=== PATIENT | male | born 1950 | race Caucasian/White ===

== ENCOUNTER 2016-03-19 04:41 | Emergency (ER) | payer MEDICARE, MEDICAID ==
[2016-03-19 05:28] LABS: ABSOLUTE EOSINOPHILS # (AUTO) 0.1 10^3/uL (0.0-0.6); ABSOLUTE LYMPHOCYTES (AUTO) 1.8 10^3/uL (0.5-4.7); ABSOLUTE MONOCYTES (AUTO) 0.7 10^3/uL (0.1-1.4); ABSOLUTE NEUT (AUTO) 3.4 10^3/uL (1.7-8.2); BASOPHILS % (AUTO) 0.3 % (0-2); EOSINOPHILS % (AUTO) 1.6 % (0-6); HEMATOCRIT 42.6 % (37.9-51.0); HEMOGLOBIN 13.9 g/dL (13.5-17.0); HGB HCT DIFFERENCE -0.9; LYMPHOCYTES % (AUTO) 30.2 % (13-45); MEAN CORPUSCULAR HEMOGLOBIN 27.8 pg (27.0-33.4); MEAN CORPUSCULAR HGB CONC 32.5 g/dL (32.0-36.0); MEAN CORPUSCULAR VOLUME 85 fl (80-97); MONOCYTES % (AUTO) 11.9 % (3-13); RED BLOOD COUNT 4.99 10^6/uL (4.35-5.55); RED CELL DISTRIBUTION WIDTH 16.7 % (11.5-14.0)
[2016-03-19 06:23] LABS: ANION GAP 13 (5-19); BLOOD UREA NITROGEN 12 mg/dL (7-20); CALCIUM 9.3 mg/dL (8.4-10.2); CARBON DIOXIDE 30 mmol/L (22-30); CHLORIDE 99 mmol/L (98-107); CREATININE RESULT 0.88 mg/dL (0.52-1.25); GLUCOSE 94 mg/dL (75-110); MAGNESIUM 1.9 mg/dL (1.6-2.3); POTASSIUM 4.5 mmol/L (3.6-5.0); SODIUM 141.8 mmol/L (137-145)
--- NOTE | 2016-03-19 06:34 | ER Document Report ---
ED General - General Chief Complaint: Seizure Stated Complaint: POSSIBLE SEIZURE Time seen by provider: 06:30 Mode of Arrival: Medic Information source: Patient Notes: 65-year-old male presents via EMS with report of possible seizure. Patient reports his seizure episodes or staring spells and he thinks he had one of those at some point during the night tonight. He is not sure exactly when. He reports he has been taking his valproic acid as usual is a correction is providing that to them. He has no complaints now. Physical Exam: General: Alert, appears well. HEENT: Normocephalic. Atraumatic. PERRLA. Extraocular movements intact. Oropharynx clear. Tympanic membranes are canals clear Neck: Supple. Non-tender. Respiratory: No respiratory distress. Clear and equal breath sounds bilaterally. Cardiovascular: Regular rate and rhythm. Abdominal: Normal Inspection. Soft, non-tender. No distension. Normal Bowel Sounds. Back: Non-tender. No deformity or step off. Minimal erythema in the sacral region but no areas of skin breakdown normal male testes ongoing no lesions Extremities: Moves all four extremities. No gross deformities no lesions noted no pain in extremity with passive range of motion Neurological: Cranial nerves III-XII grossly intact bilaterally. Supervisor [place]ble strength 4-5 to left upper extremity. 5 out of 5 on the right. Motor function is 3 out of 5 to left lower extremity compared to 4 out of 5 on the right Psychological: Normal affect. Normal Mood. Skin: Warm. Dry. Normal color. TRAVEL OUTSIDE OF THE [place] IN LAST 30 DAYS: No - Related Data Allergies/Adverse Reactions: NUTS Allergy (Mild, Uncoded 03/14/15 15:48) Past Medical History - Social History Smoking Status: Former Smoker Family History: CVA - Past Medical History Cardiac Medical History: Reports: Hx Hypercholesterolemia, Hx Hypertension Denies: Hx Coronary Artery Disease, Hx Heart Attack Pulmonary Medical History: Reports: Hx COPD Denies: Hx Asthma, Hx Bronchitis, Hx Pneumonia Neurological Medical History: Reports: Hx Cerebrovascular Accident, Hx Seizures Musculoskeltal Medical History: Reports Hx Arthritis Psychiatric Medical History: Reports: Hx Depression Traumatic Medical History: Reports: Hx Spine Fracture Past Surgical History: Reports: Hx Orthopedic Surgery - Right knee cap - Immunizations Hx Diphtheria, Pertussis, Tetanus Vaccination: Yes Review of Systems - Review of Systems Constitutional: denies: Chills, Fever EENT: denies: Ear pain, Throat pain Cardiovascular: denies: Chest pain, Palpitations Respiratory: denies: Cough, Short of breath Gastrointestinal: denies: Abdominal pain, Nausea, Vomiting Genitourinary: denies: Burning, Dysuria Musculoskeletal: denies: Back pain Hematologic/Lymphatic: denies: Swollen glands Neurological/Psychological: Weakness - Patient reports left upper and lower extremity weakness at his baseline. denies: Numbness Course - Re-evaluation Re-evalutation: 03/19/16 07:10 Patient remains asymptomatic during his stay in the emergency department. He is mentating clearly and reports he is at his baseline. Patient is safe for discharge and requires no further workup - Laboratory Result Diagrams: 03/19/16 05:00 03/19/16 05:00 Laboratory results interpreted by me: 03/19/16 05:00 RDW 16.7 H 03/19/16 07:10 Valproic acid level 105.7 Discharge - Discharge Clinical Impression: Seizure Condition: Stable Disposition: HOME-SNF (ED ONLY) Additional Instructions: Seizure You have had a seizure. Seizure disorders (epilepsy) of one sort or another affect about one out of 50 people. The seizure occurs because of abnormal electrical activity in the brain. Seizures may be due to drugs and alcohol, strokes, brain injury, or infection. In the most common form of epilepsy, no cause can be found. You will require further evaluation to determine the cause of your seizure, and to determine whether anti-seizure medication is required. This follow-up testing is important, so please call us if you encounter problems with scheduling of tests or appointments. YOU SHOULD NOT DRIVE until released to do so by your physician. The law requires that seizures be reported to the driver manager's license bureau--a seizure while driving could be catastrophic. Call the doctor if seizures recur, or if you develop new symptoms such as fever, severe headache, stiff neck, confusion or increasing sleepiness, weakness or numbness, or visual problems. Referrals: TIFFANY THOMAS MD [COMMUNITY BASED STAFF] - Follow up as needed
[2016-03-19 08:15] VITALS: BP 141/90
== END 2016-03-19 08:20 ==
LOC: ER 04:41
DX: R56.9 Unspecified convulsions (principal); R53.1 Weakness; E78.00 Pure hypercholesterolemia, unspecified; I10 Essential (primary) hypertension; J44.9 Chronic obstructive pulmonary disease, unspecified; Z91.018 Allergy to other foods; Z86.73 Personal history of transient ischemic attack (TIA), and cerebral infarction without residual deficits
CPT/HCPCS: 36415; 80048; 80164; 83735; 85025; 99284

== ENCOUNTER 2016-03-26 06:27 | Inpatient (IN) | payer MEDICARE, MEDICAID ==
[2016-03-26] MEDS ORDERED: NORMAL SALINE 1000 ML 1,000 ML IV PRN (06:43)
--- NOTE | 2016-03-26 06:43 | ER Document Report ---
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 Pt placed on nonrebreather sating 87%. pt is confused TRAVEL OUTSIDE OF THE [place] IN LAST 30 DAYS: No - HPI Onset: Yesterday Onset/Duration: Persistent Quality of pain: No pain Severity: Severe Pain Level: Denies Associated symptoms: Productive cough, Fever, Shortness of breath Exacerbated by: Denies Relieved by: Denies Similar symptoms previously: No Recently seen / treated by doctor: No - Related Data Allergies/Adverse Reactions: NUTS Allergy (Mild, Uncoded 03/14/15 15:48) Past Medical History - General Information source: Emergency Med Personnel Cannot obtain history due to: Altered mental status - Social History Smoking Status: Never Smoker Cigarette use (# per day): No Chew tobacco use (# tins/day): No Smoking Education Provided: No Family History: CVA - Past Medical History Cardiac Medical History: Reports: Hx Hypercholesterolemia, Hx Hypertension Denies: Hx Coronary Artery Disease, Hx Heart Attack Pulmonary Medical History: Reports: Hx COPD Denies: Hx Asthma, Hx Bronchitis, Hx Pneumonia Neurological Medical History: Reports: Hx Cerebrovascular Accident, Hx Seizures Musculoskeltal Medical History: Reports Hx Arthritis Psychiatric Medical History: Reports: Hx Depression Traumatic Medical History: Reports: Hx Spine Fracture Past Surgical History: Reports: Hx Orthopedic Surgery - Right knee cap - Immunizations Hx Diphtheria, Pertussis, Tetanus Vaccination: Yes Review of Systems - Review of Systems Notes: REVIEW OF SYSTEMS: Per care facility CONSTITUTIONAL : Fevers recent illness EENT: Denies eye, ear, throat, or mouth pain or symptoms. Denies nasal or sinus congestion or discharge. Denies throat, tongue, or mouth swelling or difficulty swallowing. CARDIOVASCULAR: Denies chest pain. Denies palpitations or racing or irregular heart beat. Denies ankle edema. RESPIRATORY: Duct of cough shortness of breath GASTROINTESTINAL: Denies abdominal pain or distention. Denies nausea, vomiting , or diarrhea. Denies blood in vomitus, stools, or per rectum. Denies black, tarry stools. Denies constipation. GENITOURINARY: Denies difficulty urinating, painful urination, burning, frequency, blood in urine, or discharge. MUSCULOSKELETAL: Denies back or neck pain or stiffness. Denies joint pain or swelling. SKIN: Denies rash, lesions or sores. HEMATOLOGIC : Denies easy bruising or bleeding. LYMPHATIC: Denies swollen, enlarged glands. NEUROLOGICAL: Denies confusion or altered mental status. Denies passing out or loss of consciousness. Denies dizziness or lightheadedness. Denies headache. Denies weakness or paralysis or loss of use of either side. Denies problems with gait or speech. Denies sensory loss, numbness, or tingling. Denies seizures. PSYCHIATRIC: Denies anxiety or stress. Denies depression, suicidal ideation, or homicidal ideation. ALL OTHER SYSTEMS REVIEWED AND NEGATIVE. Dictation was performed using [employer] voice recognition software PHYSICAL EXAMINATION: GENERAL: Ill-appearing male febrile HEAD: Atraumatic, normocephalic. EYES: Pupils equal round and reactive to light, extraocular movements intact, sclera anicteric, conjunctiva are normal. ENT: Nares patent, oropharynx clear without exudates. Moist mucous membranes. NECK: Normal range of motion, supple without lymphadenopathy LUNGS: Coarse rhonchi all throughout hypoxic HEART: Tachycardic ABDOMEN: Soft, nontender, nondistended abdomen. No guarding, no rebound. No masses appreciated. Musculoskeletal: Unable to evaluate musculoskeletal NEUROLOGICAL: Patient is confused SKIN: Warm, Dry, normal turgor, no rashes or lesions noted. Physical Exam - Vital signs Vitals: Pulse Ox 87 L 03/26/16 06:31 Course - Re-evaluation Re-evalutation: 03/26/16 06:42 Patient is septic from probable aspiration pneumonia, antibiotics have been ordered as well as fluids. Patient is not satting well on nonrebreather and BiPAP has been ordered. 03/26/16 11:41 Patient admitted to hospital service - Vital Signs Vital signs: Temp Pulse Resp BP Pulse Ox 13 145/81 H 92 03/26/16 07:01 03/26/16 07:01 03/26/16 07:01 - Laboratory Result Diagrams: 03/26/16 06:37 03/26/16 06:37 Laboratory results interpreted by me: 03/26/16 03/26/16 03/26/16 06:37 06:37 07:15 RDW 17.0 H Monocytes % 16.1 H ABG pO2 BUN 21 H Glucose 136 H Creatine Kinase 1068 H Urine Protein 100 H Urine Ketones TRACE H Urine Blood SMALL H Urine Urobilinogen 4.0 H Ur Leukocyte Esterase LARGE H 03/26/16 08:13 RDW Monocytes % ABG pO2 101.9 H BUN Glucose Creatine Kinase Urine Protein Urine Ketones Urine Blood Urine Urobilinogen Ur Leukocyte Esterase - Diagnostic Test Radiology reviewed: Image reviewed, Reports reviewed - EKG Interpretation by Me EKG shows normal: Sinus rhythm, [place], Intervals, QRS Complexes Rate: Tachycardia Critical Care Note - Critical Care Note Total time excluding time spent on procedures (mins): 45 Comments: 45 minutes of critical care time spent in direct contact evaluating and reevaluating the patient, treating symptoms, reviewing labs and studies and speaking with family and consultants excluding any procedures Discharge - Discharge Clinical Impression: Hypoxemia Respiratory failure Qualifiers: Chronicity: acute Respiratory failure complication: hypoxia and hypercapnia Qualified Code(s): J96.01 - Acute respiratory failure with hypoxia Sepsis Qualifiers: Sepsis type: sepsis due to unspecified organism Qualified Code(s): A41.9 - Sepsis, unspecified organism Aspiration pneumonia Qualifiers: Aspiration pneumonia type: due to gastric secretions Laterality: bilateral Lung location: unspecified part of lung Qualified Code(s): J69.0 - Pneumonitis due to inhalation of food and vomit UTI (urinary tract infection) Qualifiers: Urinary tract infection type: acute cystitis Hematuria presence: without hematuria Qualified Code(s): N30.00 - Acute cystitis without hematuria Condition: Serious Disposition: ADMITTED INPATIENT Admitting Provider: Hospitalist Unit Admitted: ICU
[2016-03-26] MEDS ORDERED: LEVOFLOXACIN 750 MG/D5W RTU 150 ML IV ONE (06:44)
[2016-03-26] MEDS ORDERED: VANCOMYCIN HCL INJ 1000 MG VIAL IV ONE (06:44)
[2016-03-26] MEDS ORDERED: AMPICILLIN SOD/SULBACTAM 3 GM VIAL IV ONE (06:44)
[2016-03-26 06:53] LABS: ABSOLUTE LYMPHOCYTES (AUTO) 1.2 10^3/uL (0.5-4.7); BASOPHILS % (AUTO) 0.5 % (0-2); EOSINOPHILS % (AUTO) 0.2 % (0-6); HEMATOCRIT 45.7 % (37.9-51.0); HEMOGLOBIN 14.9 g/dL (13.5-17.0); MEAN CORPUSCULAR HEMOGLOBIN 28.1 pg (27.0-33.4); MEAN CORPUSCULAR HGB CONC 32.6 g/dL (32.0-36.0); MEAN CORPUSCULAR VOLUME 86 fl (80-97); MONOCYTES % (AUTO) 16.1 % (3-13); RED BLOOD COUNT 5.31 10^6/uL (4.35-5.55); SEGMENTED NEUTROPHILS % (AUTO) 64.2 % (42-78); WHITE BLOOD COUNT 6.2 10^3/uL (4.0-10.5)
[2016-03-26] MEDS: NORMAL SALINE 1000 ML 1,000 ML IV PRN ×3 (07:00→18:49)
[2016-03-26 07:04] LABS: ALANINE AMINOTRANSFERASE 24 U/L (21-72); ALBUMIN 4.1 g/dL (3.5-5.0); ALKALINE PHOSPHATASE 81 U/L (38-126); ANION GAP 17 (5-19); ASPARTATE AMINO TRANSFERASE 29 U/L (17-59); BILIRUBIN,TOTAL 1.1 mg/dL (0.2-1.3); BLOOD UREA NITROGEN 21 mg/dL (7-20); CALCIUM 9.5 mg/dL (8.4-10.2); CARBON DIOXIDE 27 mmol/L (22-30); CHLORIDE 100 mmol/L (98-107); CREATINE KINASE 1068 U/L (55-170); CREATININE RESULT 0.99 mg/dL (0.52-1.25); GLUCOSE 136 mg/dL (75-110); POTASSIUM 4.2 mmol/L (3.6-5.0); TOTAL PROTEIN 7.5 g/dL (6.3-8.2)
[2016-03-26 07:16] LABS: CREATINE KINASE MB 1.65 ng/mL (<4.55)
[2016-03-26 07:30] LABS: TROPONIN I < 0.012 ng/mL
[2016-03-26 08:11] LABS: APPEARANCE,URINE CLOUDY; BILIRUBIN,URINE NEGATIVE (NEGATIVE); GLUCOSE, URINE NEGATIVE (NEGATIVE); KETONES,URINE TRACE mg/dL (NEGATIVE); LEUKOCYTE ESTERASE,URINE LARGE (NEGATIVE); NITRITE,URINE NEGATIVE (NEGATIVE); PROTEIN,URINE 100 mg/dL (NEGATIVE); URINE SPECIFIC GRAVITY 1.016
[2016-03-26 08:28] LABS: ARTERIAL BLOOD BASE EXCESS -2.6 mmol/L; ARTERIAL BLOOD O2 SATURATION 97.4 % (94-98)
[2016-03-26 08:44] LABS: VENOUS BLOOD BASE EXCESS -0.7 mmol/L; VENOUS BLOOD HCO3 27.1 mmol/L (20-32); VENOUS BLOOD PH 7.3 (7.30-7.42)
[2016-03-26] MEDS ORDERED: ACETAMINOPHEN 325 MG TABLET PO PRN (09:41)
[2016-03-26] MEDS ORDERED: CEFEPIME 2 GM/D5W RTU 50 ML IV SCH (10:00)
--- NOTE | 2016-03-26 10:12 | PDOC H&P ---
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 The ambulance was called and apparently the patient was hypoxic in the 80s and was placed on nonrebreather mask. Despite being 100% on nonrebreather saturations still in the 80s. No reported seizure episode. History of COPD however. In the emergency room the patient is confused and unable to provide information. There was no recorded temperature spikes. WBC was normal. However chest x-ray revealed infiltrates in the lower dose. Intravenous antibiotic was given. Patient was placed on BiPAP. ABG shows normal pH with improvement in oxygenation. Respiratory distress improved. Patient was then referred for admission. Patient remains confused however. No other information available at this time. Information obtained from the emergency room records and from prior records. Information unobtainable from the patient at this time. , Past Medical History Past Medical History: Medications reconciliation pending verification from the patient's pharmacist Cardiac Medical History: Reports: Hyperlipidema, Hypertension Denies: Coronary Artery Disease, Myocardial Infarction Pulmonary Medical History: Reports: Chronic Obstructive Pulmonary Disease (COPD) Denies: Asthma, Bronchitis, Pneumonia Neurological Medical History: Reports: Seizures Malignancy Medical History: Reports: Skin Cancer Musculoskeltal Medical History: Reports: Arthritis Psychiatric Medical History: Reports: Depression Hematology: Denies: Anemia Past Surgical History Past Surgical History: Reports: Orthopedic Surgery - Right knee cap, Other - Excision of skin cancer, colonoscopy Social History Smoking Status: Former Smoker Frequency of Alcohol Use: None Hx Recreational Drug Use: No Drugs: None Family History Family History: CVA Parental Family History Reviewed: No - unobtainable Children Family History Reviewed: No Sibling(s) Family History Reviewed.: No Medication/Allergy Home Medications: Bupropion HCl [Wellbutrin Xl 150 mg 24hr Tablet] 150 mg PO DAILY 03/26/16 Divalproex Sodium [Depakote] 1,500 mg PO QHS 03/26/16 Duloxetine HCl [Cymbalta 20 mg Capsule.dr] 20 mg PO DAILY 03/26/16 Ezetimibe [Zetia 10 mg Tablet] 10 mg PO HSP PRN 03/26/16 Gabapentin [Neurontin 300 mg Capsule] 900 mg PO Q8 03/26/16 Morphine Sulfate [Morphine Ir 15 mg Tablet] 15 mg PO Q8 03/26/16 Omeprazole 40 mg PO QAM 03/26/16 Pregabalin [Lyrica 25 mg Capsule] 25 mg PO Q12 03/26/16 Rosuvastatin Calcium [Crestor 20 mg Tablet] 40 mg PO DAILY 03/26/16 Tamsulosin HCl [Flomax 0.4 mg Cap.sr] 0.4 mg PO DAILY 03/26/16 Allergies/Adverse Reactions: NUTS Allergy (Mild, Uncoded 03/14/15 15:48) Review of Systems ROS unobtainable: Due to mental status - Staff reports stage II decubitus ulcer on coccyx Physical Exam Vital Signs: Temp Pulse Resp BP Pulse Ox 13 145/81 H 92 03/26/16 07:01 03/26/16 07:01 03/26/16 07:01 General appearance: PRESENT: no acute distress, well-developed, other - On BiPAP Head exam: PRESENT: atraumatic, normocephalic Eye exam: PRESENT: conjunctiva pale, EOMI, PERRLA. ABSENT: scleral icterus Ear exam: PRESENT: normal external ear exam. ABSENT: drainage Mouth exam: PRESENT: dry mucosa, neck supple, tongue midline Neck exam: ABSENT: carotid bruit, JVD, lymphadenopathy, thyromegaly Respiratory exam: PRESENT: decreased breath sounds, rhonchi - Few bilateral. ABSENT: rales, wheezes Cardiovascular exam: PRESENT: RRR, +S1, +S2. ABSENT: diastolic murmur, rubs, systolic murmur Pulses: PRESENT: normal dorsalis pedis pul Vascular exam: PRESENT: normal capillary refill GI/Abdominal exam: PRESENT: normal bowel sounds, soft, other - Slight tympany to percussion. ABSENT: distended, guarding, mass, organolmegaly, rebound, tenderness Rectal exam: PRESENT: deferred Extremities exam: PRESENT: +1 edema. ABSENT: calf tenderness, clubbing Neurological exam: PRESENT: altered, motor sensory deficit, other - moves left upper extremity Psychiatric exam: ABSENT: agitated Focused psych exam: ABSENT: restlessness Skin exam: PRESENT: dry, intact, warm. ABSENT: cyanosis, rash Results Impressions: Chest X-Ray 03/26/16 06:31 IMPRESSION: Bibasilar airspace disease either edema or pneumonia. Findings are accentuated by low lung volumes. Assessment & Plan - Diagnosis (1) Respiratory failure Qualifiers: Chronicity: acute Respiratory failure complication: hypoxia and hypercapnia Qualified Code(s): J96.01 - Acute respiratory failure with hypoxia Is this a current diagnosis for this admission?: Yes (2) Aspiration pneumonia Qualifiers: Aspiration pneumonia type: due to gastric secretions Laterality: bilateral Lung location: unspecified part of lung Qualified Code(s): J69.0 - Pneumonitis due to inhalation of food and vomit Is this a current diagnosis for this admission?: Yes (3) UTI (urinary tract infection) Qualifiers: Urinary tract infection type: acute cystitis Hematuria presence: without hematuria Qualified Code(s): N30.00 - Acute cystitis without hematuria Is this a current diagnosis for this admission?: Yes (4) Seizure Is this a current diagnosis for this admission?: Yes (5) COPD (chronic obstructive pulmonary disease) Qualifiers: COPD type: unspecified COPD Qualified Code(s): J44.9 - Chronic obstructive pulmonary disease, unspecified Is this a current diagnosis for this admission?: Yes (6) Hypertension Qualifiers: Hypertension type: essential hypertension Qualified Code(s): I10 - Essential (primary) hypertension Is this a current diagnosis for this admission?: Yes (7) Hyperlipidemia Qualifiers: Hyperlipidemia type: unspecified Qualified Code(s): E78.5 - Hyperlipidemia, unspecified Is this a current diagnosis for this admission?: Yes (8) Neurogenic bladder Is this a current diagnosis for this admission?: Yes (9) Depression Qualifiers: Depression Type: unspecified Qualified Code(s): F32.9 - Major depressive disorder, single episode, unspecified Is this a current diagnosis for this admission?: Yes (10) History of stroke Is this a current diagnosis for this admission?: Yes (11) Chronic pain Qualifiers: Chronic pain type: chronic pain syndrome Qualified Code(s): G89.4 - Chronic pain syndrome Is this a current diagnosis for this admission?: Yes (12) Decubitus ulcer of coccyx, stage 2 Is this a current diagnosis for this admission?: Yes - Time Time Spent: 50 to 70 Minutes - Inpatient Certification Based on my medical assessment, after consideration of the patient's comorbidities, presenting symptoms, or acuity I expect that the services needed warrant INPATIENT care.: Yes I certify that my determination is in accordance with my understanding of Medicare's requirements for reasonable and necessary INPATIENT services [42 CFR 412.3e].: Yes Medical Necessity: Significant Comorbidiites Make Outpatient Treatment Too Risky , Need Close Monitoring Due to Risk of Patient Decompensation, Need For IV Fluids, Need for IV Antibiotics Post Hospital Care: D/C Desktop Specialist Documentation - Plan Summary Plan Summary: the patient will be admitted, to [facility]. We will culture to blood in the urine. We will culture the sputum as well. We will begin broad-spectrum antibiotic to cover for aspiration and likewise for a complicated urinary tract infection. I will hydrate the patient with normal saline. We will monitor CPK. We will continue ventilatory support and wean as per respiratory protocol. We will give bronchodilators. DVT prophylaxis with Lovenox will be placed. Decubiti care and precautions. Further testing depends on the initial evaluation as outlined above
--- NOTE | 2016-03-26 11:46 | EKG REPORT ---
SEVERITY:- ABNORMAL ECG - SINUS TACHYCARDIA RBBB AND LPFB : Confirmed by: An Enriquez MD 26-Mar-2016 11:45:48
[2016-03-26] MEDS ORDERED: CEFEPIME HCL 2 GM in DEXTROSE 5%-WATER 50 ML IV ONE (12:00)
[2016-03-26] MEDS ORDERED: LEVETIRACETAM INJ/PF 500 MG/5 ML SDV IV SCH (12:30)
[2016-03-26] MEDS: LEVETIRACETAM 500 MG/NACL-ISO 500 MG/100 ML RTUPB IV SCH (13:09)
[2016-03-26] MEDS: IPRATROPIUM/ALBUTEROL 0.5-2.5 MG/3 ML AMPUL NEB SCH ×2 (13:52→20:09)
[2016-03-26] MEDS: CLINDAMYCIN 600 MG/D5W RTU 50 ML IV SCH ×2 (14:36→22:21)
[2016-03-26] MEDS: GABAPENTIN 300 MG CAPSULE PO SCH ×2 (18:50→22:20)
[2016-03-26] MEDS ORDERED: DIVALPROEX SODIUM 1000 MG PO SCH (22:00)
[2016-03-26] MEDS: DIVALPROEX SODIUM 500 MG TAB.SR.24H PO SCH (22:20)
[2016-03-26] MEDS: CEFEPIME HCL 2 GM in DEXTROSE 5%-WATER 50 ML IV SCH (23:20)
[2016-03-27] MEDS ORDERED: CEFEPIME 2 GM/D5W RTU 2 GM/50 ML RTUPB IV ONE (00:44)
[2016-03-27] MEDS: NORMAL SALINE 1000 ML 1,000 ML IV PRN ×2 (01:39→12:38)
[2016-03-27] MEDS ORDERED: LEVETIRACETAM 500 MG/NACL-ISO 500 MG/100 ML RTUPB IV ONE (01:45)
[2016-03-27] MEDS: LEVETIRACETAM 500 MG/NACL-ISO 500 MG/100 ML RTUPB IV SCH ×2 (01:49→12:38)
[2016-03-27] MEDS: IPRATROPIUM/ALBUTEROL 0.5-2.5 MG/3 ML AMPUL NEB SCH ×4 (02:09→20:18)
[2016-03-27] MEDS ORDERED: INFLUENZA ADLT QUAD (36MOS+) 2016-17 VAC 0.5 ML SYR IM PRN (05:23)
[2016-03-27] MEDS: CLINDAMYCIN 600 MG/D5W RTU 50 ML IV SCH ×3 (06:08→23:03)
[2016-03-27] MEDS: LANSOPRAZOLE 30 MG TAB.RAP.DR PO SCH (06:10)
[2016-03-27] MEDS: GABAPENTIN 300 MG CAPSULE PO SCH ×4 (06:10→23:56)
[2016-03-27 07:37] LABS: ANION GAP 14 (5-19); BLOOD UREA NITROGEN 19 mg/dL (7-20); CALCIUM 8.9 mg/dL (8.4-10.2); CARBON DIOXIDE 24 mmol/L (22-30); CHLORIDE 107 mmol/L (98-107); CREATININE RESULT 0.67 mg/dL (0.52-1.25); GLUCOSE 112 mg/dL (75-110); POTASSIUM 3.4 mmol/L (3.6-5.0); SODIUM 144.5 mmol/L (137-145)
[2016-03-27] MEDS: ENOXAPARIN SODIUM INJ 40 MG/0.4 ML DISP.SYRIN SUBCUT SCH (07:53)
[2016-03-27] MEDS: CEFEPIME HCL 2 GM in DEXTROSE 5%-WATER 50 ML IV SCH ×2 (09:55→23:03)
[2016-03-27] MEDS ORDERED: MORPHINE SULFATE 10 MG/ML INJ IV PRN ×2 (11:45→12:41)
[2016-03-27] MEDS ORDERED: BISACODYL 10 MG SUPP.RECT PR ONE (12:24)
--- NOTE | 2016-03-27 12:43 | PDOC PROGRESS REPORT ---
Subjective Progress Note for:: 03/27/16 Subjective:: More awake and alert. Responds to questions appropriately. No fever, N/V/ diarrhea. (+) flattus. Has chronic LE pain. No abdominal pain. Remained on BIPAP Physical Exam Vital Signs: Temp Pulse Resp BP Pulse Ox 98.5 F 89 19 138/62 H 96 03/27/16 11:36 03/27/16 11:36 03/27/16 11:36 03/27/16 11:36 03/27/16 11:36 Pulse Oximeter Continuous Start: 03/26/16 09: 41 Freq: RTQ4 Status: Active Document 03/27/16 07:51 HCR (Rec: 03/27/16 09:50 HCR [id number]) Pulse Oximetry Assessment Oxygen Saturation (92-100) 95 Oxygen Delivery Method Bi-pap Fraction of Inspired Oxygen (FIO2) 40 Equipment Usage Equipment in Use Continuous SpO2 Machine # 2 Intake & Output 03/26/16 03/27/16 03/28/16 06:59 06:59 06:59 Intake Total 1650 Output Total 1450 300 Balance 200 -300 Weight 129.8 kg General appearance: PRESENT: no acute distress, morbidly obese Head exam: PRESENT: normocephalic Eye exam: PRESENT: EOMI Mouth exam: PRESENT: moist, neck supple Neck exam: ABSENT: JVD Respiratory exam: PRESENT: clear to auscultation aleisha. ABSENT: rhonchi, wheezes Cardiovascular exam: PRESENT: RRR. ABSENT: gallop GI/Abdominal exam: PRESENT: distended, hypoactive bowel sounds, soft. ABSENT: guarding, tenderness Extremities exam: PRESENT: other - Trace lower extremity edema Neurological exam: PRESENT: alert, awake Skin exam: PRESENT: dry, warm. ABSENT: cyanosis Results Laboratory Results: 03/27/16 06:53 03/27/16 06:53 Sodium 144.5 Potassium 3.4 L Chloride 107 Carbon Dioxide 24 Anion Gap 14 BUN 19 Creatinine 0.67 Est GFR ( Amer) > 60 Est GFR (Non-Af Amer) > 60 Glucose 112 H Calcium 8.9 03/27/16 06:53 CK-MB (CK-2) 2.10 Impressions: KUB X-Ray 03/26/16 00:00 IMPRESSION: NONOBSTRUCTED PATTERN WITH GAS DISTENDED LOOPS OF SMALL AND LARGE BOWEL SUGGESTIVE OF ILEUS. Chest X-Ray 03/26/16 06:31 IMPRESSION: Bibasilar airspace disease either edema or pneumonia. Findings are accentuated by low lung volumes. Assessment & Plan - Diagnosis (1) Respiratory failure Qualifiers: Chronicity: acute Respiratory failure complication: hypoxia and hypercapnia Qualified Code(s): J96.01 - Acute respiratory failure with hypoxia Is this a current diagnosis for this admission?: Yes (2) Aspiration pneumonia Qualifiers: Aspiration pneumonia type: due to gastric secretions Laterality: bilateral Lung location: unspecified part of lung Qualified Code(s): J69.0 - Pneumonitis due to inhalation of food and vomit Is this a current diagnosis for this admission?: Yes (3) UTI (urinary tract infection) Qualifiers: Urinary tract infection type: acute cystitis Hematuria presence: without hematuria Qualified Code(s): N30.00 - Acute cystitis without hematuria Is this a current diagnosis for this admission?: Yes (4) Seizure Is this a current diagnosis for this admission?: Yes (5) COPD (chronic obstructive pulmonary disease) Qualifiers: COPD type: unspecified COPD Qualified Code(s): J44.9 - Chronic obstructive pulmonary disease, unspecified Is this a current diagnosis for this admission?: Yes (6) Hypertension Qualifiers: Hypertension type: essential hypertension Qualified Code(s): I10 - Essential (primary) hypertension Is this a current diagnosis for this admission?: Yes (7) Hyperlipidemia Qualifiers: Hyperlipidemia type: unspecified Qualified Code(s): E78.5 - Hyperlipidemia, unspecified Is this a current diagnosis for this admission?: Yes (8) Neurogenic bladder Is this a current diagnosis for this admission?: Yes (9) Depression Qualifiers: Depression Type: unspecified Qualified Code(s): F32.9 - Major depressive disorder, single episode, unspecified Is this a current diagnosis for this admission?: Yes (10) History of stroke Is this a current diagnosis for this admission?: Yes (11) Chronic pain Qualifiers: Chronic pain type: chronic pain syndrome Qualified Code(s): G89.4 - Chronic pain syndrome Is this a current diagnosis for this admission?: Yes (12) Decubitus ulcer of coccyx, stage 2 Is this a current diagnosis for this admission?: Yes - Time Time Spent with patient: 25-34 minutes - Plan Summary Plan Summary: Continue intravenous antibiotics. Wean BiPAP. Begin diet. We will give Dulcolax suppository. We will replace electrolytes. Reportedly had a seizure episode yesterday. IV Keppra was started. We will resume his Depakote as well as Neurontin. Continue supportive care.
[2016-03-27] MEDS: POTASSI CL 20 MEQ/50 ML RIDER 20 MEQ/50 ML RTUPB IV SCH ×2 (13:36→15:57)
[2016-03-27] MEDS: MORPHINE SULFATE IR 15 MG TABLET PO SCH (13:38)
--- NOTE | 2016-03-27 15:52 | Physician Advisory Note ---
Physician Advisor ProgressNote .: Pursuant to the plan for [facility], I have reviewed the medical record for this patient. Physician Advisor Statement: Excellent documentation of Ac Hypoxemic/Hypercarbic Resp Failure w/initial hypoxemia in 80s with "resp distress improved" after Bipap, which indicates pt did have resp distress with the hypoxemia, & Aspiration PNA, decub w/location & stage. CK
[2016-03-27] MEDS ORDERED: (PENDING PHARMACY ID) (Divalproex Sodium [Depakote] 1,500 MG) PO SCH (22:00)
[2016-03-27] MEDS: DIVALPROEX SODIUM 500 MG TAB.SR.24H PO SCH (23:56)
[2016-03-28] MEDS: GABAPENTIN 300 MG CAPSULE PO SCH ×4 (00:02→23:06)
[2016-03-28] MEDS: DIVALPROEX SODIUM 500 MG TAB.SR.24H PO SCH ×2 (00:02→23:07)
[2016-03-28] MEDS: LEVETIRACETAM 500 MG/NACL-ISO 500 MG/100 ML RTUPB IV SCH ×2 (01:43→13:12)
[2016-03-28] MEDS: IPRATROPIUM/ALBUTEROL 0.5-2.5 MG/3 ML AMPUL NEB SCH ×4 (02:11→19:44)
[2016-03-28 05:12] LABS: ANION GAP 12 (5-19); BLOOD UREA NITROGEN 14 mg/dL (7-20); CALCIUM 8.4 mg/dL (8.4-10.2); CARBON DIOXIDE 24 mmol/L (22-30); CHLORIDE 106 mmol/L (98-107); CREATININE RESULT 0.54 mg/dL (0.52-1.25); GLUCOSE 76 mg/dL (75-110); SODIUM 141.9 mmol/L (137-145)
[2016-03-28] MEDS: LANSOPRAZOLE 30 MG TAB.RAP.DR PO SCH (06:28)
[2016-03-28] MEDS: CLINDAMYCIN 600 MG/D5W RTU 50 ML IV SCH ×2 (06:28→13:25)
[2016-03-28] MEDS: NORMAL SALINE 1000 ML 1,000 ML IV PRN (06:28)
[2016-03-28 06:58] LABS: ADD ON TESTING BLD IN LAB ACKNOWLEDGE
[2016-03-28] MEDS ORDERED: POTASSIUM CHLORIDE 20 MEQ/15 ML UDCUP PO ONE ×3 (07:25→11:00)
--- NOTE | 2016-03-28 09:39 | PDOC PROGRESS REPORT ---
Subjective Progress Note for:: 03/28/16 Subjective:: More awake and alert and responsive. No fever, N/V/but had an episode of diarrhea yesterday but none last night. (+) flattus. Has chronic LE pain. No abdominal pain. Was able to be taken off BIPAP but this morning he is back on it reportedly due to desaturation. Patient reports no respiratory distress however. Physical Exam Vital Signs: Temp Pulse Resp BP Pulse Ox 97.9 F 93 19 125/78 97 03/28/16 07:33 03/28/16 07:33 03/28/16 07:33 03/28/16 07:33 03/28/16 07:33 Pulse Oximeter Continuous Start: 03/26/16 09: 41 Freq: RTQ4 Status: Active Document 03/28/16 04:00 SFL (Rec: 03/28/16 05:11 [email or web address] [email or web address]) Pulse Oximetry Assessment Oxygen Saturation (92-100) 90 Oxygen Delivery Method Bi-pap Equipment Usage Equipment in Use Continuous SpO2 Machine # 2 Intake & Output 03/27/16 03/28/16 03/29/16 06:59 06:59 06:59 Intake Total 1650 5073 Output Total 1450 1525 Balance 200 3548 Weight 129.8 kg 132.1 kg General appearance: PRESENT: no acute distress, cooperative, other - On BiPAP Head exam: PRESENT: normocephalic Eye exam: PRESENT: EOMI Mouth exam: PRESENT: moist, neck supple Neck exam: ABSENT: JVD Respiratory exam: PRESENT: clear to auscultation aleisha - Anteriorly, unlabored. ABSENT: rhonchi, wheezes Cardiovascular exam: PRESENT: RRR. ABSENT: gallop GI/Abdominal exam: PRESENT: distended - Mildly and slightly tympanitic., hyperactive bowel sounds, soft. ABSENT: tenderness Extremities exam: PRESENT: +1 edema Neurological exam: PRESENT: alert, awake, oriented to situation Skin exam: PRESENT: dry, warm. ABSENT: cyanosis Results Laboratory Results: 03/28/16 04:03 03/27/16 03/27/16 03/28/16 18:45 18:45 04:03 Sodium 141.9 Potassium 3.0 L* Chloride 106 Carbon Dioxide 24 Anion Gap 12 BUN 14 Creatinine 0.54 Est GFR ( Amer) > 60 Est GFR (Non-Af Amer) > 60 Glucose 76 Calcium 8.4 Magnesium Stool Occult Blood NEGATIVE Stool for White Cells NO WBCs SEEN 03/28/16 04:03 Sodium Potassium Chloride Carbon Dioxide Anion Gap BUN Creatinine Est GFR ( Amer) Est GFR (Non-Af Amer) Glucose Calcium Magnesium 2.0 Stool Occult Blood Stool for White Cells 03/27/16 06:53 CK-MB (CK-2) 2.10 Impressions: KUB X-Ray 03/26/16 00:00 IMPRESSION: NONOBSTRUCTED PATTERN WITH GAS DISTENDED LOOPS OF SMALL AND LARGE BOWEL SUGGESTIVE OF ILEUS. Chest X-Ray 03/26/16 06:31 IMPRESSION: Bibasilar airspace disease either edema or pneumonia. Findings are accentuated by low lung volumes. Assessment & Plan - Diagnosis (1) Respiratory failure Qualifiers: Chronicity: acute Respiratory failure complication: hypoxia and hypercapnia Qualified Code(s): J96.01 - Acute respiratory failure with hypoxia Is this a current diagnosis for this admission?: Yes (2) Aspiration pneumonia Qualifiers: Aspiration pneumonia type: due to gastric secretions Laterality: bilateral Lung location: unspecified part of lung Qualified Code(s): J69.0 - Pneumonitis due to inhalation of food and vomit Is this a current diagnosis for this admission?: Yes (3) UTI (urinary tract infection) Qualifiers: Urinary tract infection type: acute cystitis Hematuria presence: without hematuria Qualified Code(s): N30.00 - Acute cystitis without hematuria Is this a current diagnosis for this admission?: Yes (4) Seizure Is this a current diagnosis for this admission?: Yes (5) COPD (chronic obstructive pulmonary disease) Qualifiers: COPD type: unspecified COPD Qualified Code(s): J44.9 - Chronic obstructive pulmonary disease, unspecified Is this a current diagnosis for this admission?: Yes (6) Hypertension Qualifiers: Hypertension type: essential hypertension Qualified Code(s): I10 - Essential (primary) hypertension Is this a current diagnosis for this admission?: Yes (7) Hyperlipidemia Qualifiers: Hyperlipidemia type: unspecified Qualified Code(s): E78.5 - Hyperlipidemia, unspecified Is this a current diagnosis for this admission?: Yes (8) Neurogenic bladder Is this a current diagnosis for this admission?: Yes (9) Depression Qualifiers: Depression Type: unspecified Qualified Code(s): F32.9 - Major depressive disorder, single episode, unspecified Is this a current diagnosis for this admission?: Yes (10) History of stroke Is this a current diagnosis for this admission?: Yes (11) Chronic pain Qualifiers: Chronic pain type: chronic pain syndrome Qualified Code(s): G89.4 - Chronic pain syndrome Is this a current diagnosis for this admission?: Yes (12) Decubitus ulcer of coccyx, stage 2 Is this a current diagnosis for this admission?: Yes - Time Time Spent with patient: 15-24 minutes - Plan Summary Plan Summary: We will wean BiPAP to off. We will decrease intravenous fluids. Continue antibiotics and bronchodilators and follow cultures. Replace potassium and recheck level in the morning. Continue supportive care.
[2016-03-28] MEDS: LACTOBACILLUS ACIDOPHILUS 250 MG TAB PO SCH ×2 (13:10→17:58)
[2016-03-28] MEDS: CEFEPIME HCL 2 GM in DEXTROSE 5%-WATER 50 ML IV SCH (13:11)
[2016-03-28] MEDS: ENOXAPARIN SODIUM INJ 40 MG/0.4 ML DISP.SYRIN SUBCUT SCH (13:12)
[2016-03-28] MEDS: MORPHINE SULFATE IR 15 MG TABLET PO SCH ×4 (13:13→23:06)
[2016-03-28] MEDS: POLYETHYLENE GLYCOL 3350 POWDER 17 GM/1 PACKET PO SCH (13:23)
[2016-03-28] MEDS: PIPERACILLIN SODIUM/TAZOBACTAM 3.375 GM in NORMAL SALINE 100 ML IV SCH ×2 (17:59→23:09)
[2016-03-29] MEDS: LEVETIRACETAM 500 MG/NACL-ISO 500 MG/100 ML RTUPB IV SCH ×2 (00:34→13:52)
[2016-03-29] MEDS: IPRATROPIUM/ALBUTEROL 0.5-2.5 MG/3 ML AMPUL NEB SCH ×4 (01:57→20:09)
[2016-03-29] MEDS: GABAPENTIN 300 MG CAPSULE PO SCH ×3 (05:35→21:30)
[2016-03-29] MEDS: LANSOPRAZOLE 30 MG TAB.RAP.DR PO SCH (05:35)
[2016-03-29] MEDS: MORPHINE SULFATE IR 15 MG TABLET PO SCH ×3 (05:35→21:31)
[2016-03-29] MEDS: PIPERACILLIN SODIUM/TAZOBACTAM 3.375 GM in NORMAL SALINE 100 ML IV SCH ×3 (05:36→17:04)
[2016-03-29] MEDS: NORMAL SALINE 1000 ML 1,000 ML IV PRN ×2 (05:37→20:46)
[2016-03-29 05:41] LABS: ANION GAP 8 (5-19); BLOOD UREA NITROGEN 10 mg/dL (7-20); CALCIUM 8.5 mg/dL (8.4-10.2); CARBON DIOXIDE 28 mmol/L (22-30); CHLORIDE 103 mmol/L (98-107); CREATININE RESULT 0.67 mg/dL (0.52-1.25); GLUCOSE 79 mg/dL (75-110); POTASSIUM 3.2 mmol/L (3.6-5.0)
[2016-03-29] MEDS: ENOXAPARIN SODIUM INJ 40 MG/0.4 ML DISP.SYRIN SUBCUT SCH (10:04)
[2016-03-29] MEDS: POLYETHYLENE GLYCOL 3350 POWDER 17 GM/1 PACKET PO SCH (10:05)
[2016-03-29] MEDS: LACTOBACILLUS ACIDOPHILUS 250 MG TAB PO SCH ×2 (10:05→17:03)
--- NOTE | 2016-03-29 11:35 | PDOC PROGRESS REPORT ---
Subjective Progress Note for:: 03/29/16 Subjective:: More awake and alert and responsive. On BiPAP . No fever, N/V/but had an episode of diarrhea a few days ago but no persistent diarrhea reported. (+) flattus. Has chronic LE pain. No abdominal pain. Denies any chest pain or shortness of breath. Patient reports he is close getting back to his baseline. Physical Exam Vital Signs: Temp Pulse Resp BP Pulse Ox 98.4 F 73 14 91/50 L 91 L 03/29/16 07:48 03/29/16 08:07 03/29/16 08:07 03/29/16 07:48 03/29/16 08:07 Pulse Oximeter Continuous Start: 03/26/16 09: 41 Freq: RTQ4 Status: Active Document 03/29/16 08:07 LDA (Rec: 03/29/16 08:10 LDA [email or web address]) Pulse Oximetry Assessment Oxygen Saturation (92-100) 91 Oxygen Delivery Method Bi-pap Fraction of Inspired Oxygen (FIO2) 65 Equipment Usage Equipment in Use Continuous SpO2 Machine # [id number] Intake & Output 03/28/16 03/29/16 03/30/16 06:59 06:59 06:59 Intake Total 5073 3232 Output Total 1527 0800 Balance 3548 -1418 Weight 132.1 kg 130.2 kg General appearance: PRESENT: no acute distress, cooperative, morbidly obese Head exam: PRESENT: normocephalic Eye exam: PRESENT: conjunctiva pink Mouth exam: PRESENT: moist, neck supple Neck exam: ABSENT: JVD Respiratory exam: PRESENT: clear to auscultation aleisha, decreased breath sounds Cardiovascular exam: PRESENT: RRR. ABSENT: gallop GI/Abdominal exam: PRESENT: hypoactive bowel sounds, soft. ABSENT: tenderness Extremities exam: PRESENT: +1 edema - Bilateral lower extremity Neurological exam: PRESENT: alert, awake Skin exam: PRESENT: dry, warm. ABSENT: cyanosis Results Laboratory Results: 03/29/16 04:26 03/29/16 04:26 Sodium 139.0 Potassium 3.2 L Chloride 103 Carbon Dioxide 28 Anion Gap 8 BUN 10 Creatinine 0.67 Est GFR ( Amer) > 60 Est GFR (Non-Af Amer) > 60 Glucose 79 Calcium 8.5 03/27/16 06:53 CK-MB (CK-2) 2.10 Impressions: Chest X-Ray 03/26/16 06:31 IMPRESSION: Bibasilar airspace disease either edema or pneumonia. Findings are accentuated by low lung volumes. KUB X-Ray 03/28/16 00:00 IMPRESSION: DIFFUSE DILATION OF THE SMALL BOWEL AND COLON, UNCHANGED. PRESUMED GENERALIZED ILEUS. Assessment & Plan - Diagnosis (1) Respiratory failure Qualifiers: Chronicity: acute Respiratory failure complication: hypoxia and hypercapnia Qualified Code(s): J96.01 - Acute respiratory failure with hypoxia Is this a current diagnosis for this admission?: Yes (2) Aspiration pneumonia Qualifiers: Aspiration pneumonia type: due to gastric secretions Laterality: bilateral Lung location: unspecified part of lung Qualified Code(s): J69.0 - Pneumonitis due to inhalation of food and vomit Is this a current diagnosis for this admission?: Yes (3) UTI (urinary tract infection) Qualifiers: Urinary tract infection type: acute cystitis Hematuria presence: without hematuria Qualified Code(s): N30.00 - Acute cystitis without hematuria Is this a current diagnosis for this admission?: Yes (4) Seizure Is this a current diagnosis for this admission?: Yes (5) COPD (chronic obstructive pulmonary disease) Qualifiers: COPD type: unspecified COPD Qualified Code(s): J44.9 - Chronic obstructive pulmonary disease, unspecified Is this a current diagnosis for this admission?: Yes (6) Hypertension Qualifiers: Hypertension type: essential hypertension Qualified Code(s): I10 - Essential (primary) hypertension Is this a current diagnosis for this admission?: Yes (7) Hyperlipidemia Qualifiers: Hyperlipidemia type: unspecified Qualified Code(s): E78.5 - Hyperlipidemia, unspecified Is this a current diagnosis for this admission?: Yes (8) Neurogenic bladder Is this a current diagnosis for this admission?: Yes (9) Depression Qualifiers: Depression Type: unspecified Qualified Code(s): F32.9 - Major depressive disorder, single episode, unspecified Is this a current diagnosis for this admission?: Yes (10) History of stroke Is this a current diagnosis for this admission?: Yes (11) Chronic pain Qualifiers: Chronic pain type: chronic pain syndrome Qualified Code(s): G89.4 - Chronic pain syndrome Is this a current diagnosis for this admission?: Yes (12) Decubitus ulcer of coccyx, stage 2 Is this a current diagnosis for this admission?: Yes - Time Time Spent with patient: 15-24 minutes - Plan Summary Plan Summary: Continue current antibiotics. Continue wound care and supportive care. Replace electrolytes and recheck in the morning. If the patient continues to improve may be able to return back to [facility].
[2016-03-29] MEDS: POTASSI CL 20 MEQ/50 ML RIDER 20 MEQ/50 ML RTUPB IV SCH ×3 (14:05→20:44)
[2016-03-29] MEDS: DIVALPROEX SODIUM 500 MG TAB.SR.24H PO SCH (21:30)
[2016-03-30] MEDS: LEVETIRACETAM 500 MG/NACL-ISO 500 MG/100 ML RTUPB IV SCH ×2 (00:04→13:19)
[2016-03-30] MEDS: PIPERACILLIN SODIUM/TAZOBACTAM 3.375 GM in NORMAL SALINE 100 ML IV SCH ×4 (00:51→17:16)
[2016-03-30] MEDS: IPRATROPIUM/ALBUTEROL 0.5-2.5 MG/3 ML AMPUL NEB SCH ×4 (02:24→20:17)
[2016-03-30 05:00] LABS: ANION GAP 12 (5-19); BLOOD UREA NITROGEN 11 mg/dL (7-20); CALCIUM 8.8 mg/dL (8.4-10.2); CARBON DIOXIDE 26 mmol/L (22-30); CHLORIDE 103 mmol/L (98-107); GLUCOSE 77 mg/dL (75-110); POTASSIUM 3.7 mmol/L (3.6-5.0); SODIUM 140.6 mmol/L (137-145)
[2016-03-30] MEDS: MORPHINE SULFATE IR 15 MG TABLET PO SCH ×3 (06:16→21:51)
[2016-03-30] MEDS: GABAPENTIN 300 MG CAPSULE PO SCH ×3 (06:17→21:50)
[2016-03-30] MEDS: LANSOPRAZOLE 30 MG TAB.RAP.DR PO SCH (06:17)
[2016-03-30] MEDS: LACTOBACILLUS ACIDOPHILUS 250 MG TAB PO SCH ×2 (09:43→17:17)
[2016-03-30] MEDS: POLYETHYLENE GLYCOL 3350 POWDER 17 GM/1 PACKET PO SCH (09:43)
[2016-03-30] MEDS: ENOXAPARIN SODIUM INJ 40 MG/0.4 ML DISP.SYRIN SUBCUT SCH (09:43)
--- NOTE | 2016-03-30 12:04 | PDOC PROGRESS REPORT ---
Subjective Progress Note for:: 03/30/16 Subjective:: On BiPAP at night . Still desaturation intermittently. Remains on high flow oxygen. Denies fever, N/V/. Has chronic LE pain. No abdominal pain. Denies any chest pain or shortness of breath. Patient reports he is close getting back to his baseline. No reported temperature spikes or respiratory distress however. Physical Exam Vital Signs: Temp Pulse Resp BP Pulse Ox 97.8 F 93 20 109/58 L 94 03/30/16 07:29 03/30/16 07:51 03/30/16 07:51 03/30/16 07:29 03/30/16 07:51 Pulse Oximeter Continuous Start: 03/26/16 09: 41 Freq: RTQ4 Status: Active Document 03/30/16 07:51 LDA (Rec: 03/30/16 07:54 LDA [email or web address]) Pulse Oximetry Assessment Oxygen Saturation (92-100) 94 Oxygen Flow Rate (L/min) 6 Oxygen Delivery Method Nasal Cannula Equipment Usage Equipment in Use Continuous SpO2 Machine # [id number] Intake & Output 03/29/16 03/30/16 03/31/16 06:59 06:59 06:59 Intake Total 3232 2755 Output Total 4650 3575 Balance -1418 -820 Weight 130.2 kg 132.1 kg General appearance: PRESENT: no acute distress, cooperative, morbidly obese Head exam: PRESENT: normocephalic Eye exam: PRESENT: EOMI Mouth exam: PRESENT: moist, neck supple Neck exam: ABSENT: JVD Respiratory exam: PRESENT: clear to auscultation aleisha - Anteriorly. ABSENT: rhonchi Cardiovascular exam: PRESENT: RRR. ABSENT: gallop GI/Abdominal exam: PRESENT: distended - Obese, hypoactive bowel sounds, soft. ABSENT: tenderness Extremities exam: PRESENT: +1 edema Neurological exam: PRESENT: alert, awake, oriented to situation Skin exam: PRESENT: dry, warm. ABSENT: cyanosis Results Laboratory Results: 03/30/16 04:09 03/30/16 04:09 Sodium 140.6 Potassium 3.7 Chloride 103 Carbon Dioxide 26 Anion Gap 12 BUN 11 Creatinine 0.60 Est GFR ( Amer) > 60 Est GFR (Non-Af Amer) > 60 Glucose 77 Calcium 8.8 03/27/16 06:53 CK-MB (CK-2) 2.10 Impressions: Chest X-Ray 03/26/16 06:31 IMPRESSION: Bibasilar airspace disease either edema or pneumonia. Findings are accentuated by low lung volumes. KUB X-Ray 03/28/16 00:00 IMPRESSION: DIFFUSE DILATION OF THE SMALL BOWEL AND COLON, UNCHANGED. PRESUMED GENERALIZED ILEUS. Assessment & Plan - Diagnosis (1) Respiratory failure Qualifiers: Chronicity: acute Respiratory failure complication: hypoxia and hypercapnia Qualified Code(s): J96.01 - Acute respiratory failure with hypoxia Is this a current diagnosis for this admission?: Yes (2) Aspiration pneumonia Qualifiers: Aspiration pneumonia type: due to gastric secretions Laterality: bilateral Lung location: unspecified part of lung Qualified Code(s): J69.0 - Pneumonitis due to inhalation of food and vomit Is this a current diagnosis for this admission?: Yes (3) UTI (urinary tract infection) Qualifiers: Urinary tract infection type: acute cystitis Hematuria presence: without hematuria Qualified Code(s): N30.00 - Acute cystitis without hematuria Is this a current diagnosis for this admission?: Yes (4) Seizure Is this a current diagnosis for this admission?: Yes (6) COPD (chronic obstructive pulmonary disease) Qualifiers: COPD type: unspecified COPD Qualified Code(s): J44.9 - Chronic obstructive pulmonary disease, unspecified Is this a current diagnosis for this admission?: Yes (7) Hypertension Qualifiers: Hypertension type: essential hypertension Qualified Code(s): I10 - Essential (primary) hypertension Is this a current diagnosis for this admission?: Yes (8) Hyperlipidemia Qualifiers: Hyperlipidemia type: unspecified Qualified Code(s): E78.5 - Hyperlipidemia, unspecified Is this a current diagnosis for this admission?: Yes (9) Neurogenic bladder Is this a current diagnosis for this admission?: Yes (10) Depression Qualifiers: Depression Type: unspecified Qualified Code(s): F32.9 - Major depressive disorder, single episode, unspecified Is this a current diagnosis for this admission?: Yes (11) History of stroke Is this a current diagnosis for this admission?: Yes (12) Chronic pain Qualifiers: Chronic pain type: chronic pain syndrome Qualified Code(s): G89.4 - Chronic pain syndrome Is this a current diagnosis for this admission?: Yes (13) Decubitus ulcer of coccyx, stage 2 Is this a current diagnosis for this admission?: Yes - Time Time Spent with patient: 25-34 minutes - Plan Summary Plan Summary: We will discontinue intravenous fluids. We will try a dose of steroid seemed to help. Continue Current antibiotics. Check chest x-ray. Follow-up KUB for this. Continue supportive care.
[2016-03-30 12:57] LABS: HEMATOCRIT 34.7 % (37.9-51.0); HEMOGLOBIN 11.6 g/dL (13.5-17.0); HGB HCT DIFFERENCE 0.1; MEAN CORPUSCULAR HEMOGLOBIN 28.3 pg (27.0-33.4); MEAN CORPUSCULAR HGB CONC 33.4 g/dL (32.0-36.0); MEAN CORPUSCULAR VOLUME 85 fl (80-97); RED BLOOD COUNT 4.09 10^6/uL (4.35-5.55); RED CELL DISTRIBUTION WIDTH 17.2 % (11.5-14.0); WHITE BLOOD COUNT 10.3 10^3/uL (4.0-10.5)
[2016-03-30] MEDS ORDERED: FUROSEMIDE INJ/PF 40 MG/4 ML SDV IV ONE (14:57)
[2016-03-30] MEDS: DIVALPROEX SODIUM 500 MG TAB.SR.24H PO SCH (21:51)
[2016-03-31] MEDS: IPRATROPIUM/ALBUTEROL 0.5-2.5 MG/3 ML AMPUL NEB SCH ×4 (02:15→19:55)
[2016-03-31] MEDS ORDERED: LEVETIRACETAM 500 MG/NACL-ISO 500 MG/100 ML RTUPB IV SCH (03:00)
[2016-03-31] MEDS: PIPERACILLIN SODIUM/TAZOBACTAM 3.375 GM in NORMAL SALINE 100 ML IV SCH ×4 (03:54→20:27)
[2016-03-31] MEDS: GABAPENTIN 300 MG CAPSULE PO SCH ×3 (05:28→21:09)
[2016-03-31] MEDS: LANSOPRAZOLE 30 MG TAB.RAP.DR PO SCH (05:29)
[2016-03-31] MEDS: MORPHINE SULFATE IR 15 MG TABLET PO SCH (05:29)
--- NOTE | 2016-03-31 10:00 | PDOC PROGRESS REPORT ---
Subjective Progress Note for:: 03/31/16 Subjective:: Patient back on the BiPAP now. Reportedly desaturated again last night. However no reported respiratory distress or temperature spikes. No reported choking sensation. Had some pulmonary vascular congestion yesterday on chest x- ray but intravenous fluid has been discontinued and one dose of Lasix was given with good urine output as reported by the staff. Patient denies any worsening shortness of breath however. Denies any chest pain. No paroxysmal coughing. No reported good bowel movement however for the past few days. Physical Exam Vital Signs: Temp Pulse Resp BP Pulse Ox 98.5 F 93 16 92/45 L 94 03/31/16 07:45 03/31/16 08:03 03/31/16 08:03 03/31/16 07:45 03/31/16 08:03 Pulse Oximeter Continuous Start: 03/26/16 09: 41 Freq: RTQ4 Status: Active Document 03/31/16 08:03 LDA (Rec: 03/31/16 09:10 LDA [email or web address]) Pulse Oximetry Assessment Oxygen Saturation (92-100) 94 Oxygen Delivery Method Bi-pap Fraction of Inspired Oxygen (FIO2) 95 Equipment Usage Equipment in Use Continuous SpO2 Machine # n-[id number] Intake & Output 03/30/16 03/31/16 04/01/16 06:59 06:59 06:59 Intake Total 2755 970 Output Total 3575 4250 Balance -820 -3280 Weight 132.1 kg 129.8 kg General appearance: PRESENT: no acute distress, morbidly obese, other - On BiPAP Head exam: PRESENT: normocephalic Eye exam: PRESENT: EOMI Mouth exam: PRESENT: moist, neck supple Neck exam: ABSENT: JVD Respiratory exam: PRESENT: rhonchi - few, unlabored. ABSENT: wheezes Cardiovascular exam: PRESENT: RRR. ABSENT: gallop GI/Abdominal exam: PRESENT: hypoactive bowel sounds, soft, other - Slight tympany. ABSENT: distended, tenderness Extremities exam: PRESENT: +1 edema - Improved Neurological exam: PRESENT: alert, awake, oriented to situation Skin exam: PRESENT: dry, warm. ABSENT: cyanosis Results Laboratory Results: 03/30/16 04:09 03/30/16 04:09 03/30/16 04:09 WBC 10.3 RBC 4.09 L Hgb 11.6 L Hct 34.7 L MCV 85 MCH 28.3 MCHC 33.4 RDW 17.2 H Plt Count 228 03/27/16 06:53 CK-MB (CK-2) 2.10 Impressions: Chest X-Ray 03/30/16 00:00 IMPRESSION: 2 cm nodule versus infiltrate in the left mid lung. Pulmonary vascular prominence. KUB X-Ray 03/30/16 00:00 IMPRESSION: Limited study, nonspecific bowel gas pattern Minimal left basilar airspace disease likely atelectasis Assessment & Plan - Diagnosis (1) Respiratory failure Qualifiers: Chronicity: acute Respiratory failure complication: hypoxia and hypercapnia Qualified Code(s): J96.01 - Acute respiratory failure with hypoxia Is this a current diagnosis for this admission?: Yes (2) Aspiration pneumonia Qualifiers: Aspiration pneumonia type: due to gastric secretions Laterality: bilateral Lung location: unspecified part of lung Qualified Code(s): J69.0 - Pneumonitis due to inhalation of food and vomit Is this a current diagnosis for this admission?: Yes (3) UTI (urinary tract infection) Qualifiers: Urinary tract infection type: acute cystitis Hematuria presence: without hematuria Qualified Code(s): N30.00 - Acute cystitis without hematuria Is this a current diagnosis for this admission?: Yes (4) Seizure Is this a current diagnosis for this admission?: Yes (6) COPD (chronic obstructive pulmonary disease) Qualifiers: COPD type: unspecified COPD Qualified Code(s): J44.9 - Chronic obstructive pulmonary disease, unspecified Is this a current diagnosis for this admission?: Yes (7) Hypertension Qualifiers: Hypertension type: essential hypertension Qualified Code(s): I10 - Essential (primary) hypertension Is this a current diagnosis for this admission?: Yes (8) Hyperlipidemia Qualifiers: Hyperlipidemia type: unspecified Qualified Code(s): E78.5 - Hyperlipidemia, unspecified Is this a current diagnosis for this admission?: Yes (9) Neurogenic bladder Is this a current diagnosis for this admission?: Yes (10) Depression Qualifiers: Depression Type: unspecified Qualified Code(s): F32.9 - Major depressive disorder, single episode, unspecified Is this a current diagnosis for this admission?: Yes (11) History of stroke Is this a current diagnosis for this admission?: Yes (12) Chronic pain Qualifiers: Chronic pain type: chronic pain syndrome Qualified Code(s): G89.4 - Chronic pain syndrome Is this a current diagnosis for this admission?: Yes (13) Decubitus ulcer of coccyx, stage 2 Is this a current diagnosis for this admission?: Yes - Time Time Spent with patient: 25-34 minutes - Plan Summary Plan Summary: We will continue the BiPAP support for now. We are going to give enema. We will obtain CT scan of the chest. Continue antibiotics. Continue supportive care.
[2016-03-31] MEDS: POLYETHYLENE GLYCOL 3350 POWDER 17 GM/1 PACKET PO SCH (10:25)
[2016-03-31] MEDS: LACTOBACILLUS ACIDOPHILUS 250 MG TAB PO SCH ×2 (10:26→17:08)
[2016-03-31] MEDS: ENOXAPARIN SODIUM INJ 40 MG/0.4 ML DISP.SYRIN SUBCUT SCH (10:27)
[2016-03-31 10:51] LABS: ARTERIAL BLOOD BASE EXCESS 7.6 mmol/L; ARTERIAL BLOOD O2 SATURATION 97.5 % (94-98)
[2016-03-31] MEDS: OXYCODONE HCL IR 5 MG TABLET PO PRN (20:26)
[2016-03-31] MEDS: LACTULOSE SYRUP 20 GM/30 ML UDCUP PO SCH (21:08)
[2016-03-31] MEDS: DIVALPROEX SODIUM 250 MG TABLET.DR PO SCH (21:09)
[2016-03-31] MEDS: LEVETIRACETAM 500 MG TABLET PO SCH (21:09)
[2016-03-31] MEDS ORDERED: LACTULOSE 10 GM PO SCH (22:00)
[2016-03-31] MEDS ORDERED: (PENDING PHARMACY ID) (Divalproex Sodium [Depakote] 1,000 MG) PO SCH (22:00)
[2016-04-01] MEDS: IPRATROPIUM/ALBUTEROL 0.5-2.5 MG/3 ML AMPUL NEB SCH ×4 (02:11→20:23)
[2016-04-01] MEDS: PIPERACILLIN SODIUM/TAZOBACTAM 3.375 GM in NORMAL SALINE 100 ML IV SCH ×4 (02:11→22:06)
[2016-04-01 04:50] LABS: HEMATOCRIT 38.1 % (37.9-51.0); HEMOGLOBIN 12.3 g/dL (13.5-17.0); HGB HCT DIFFERENCE -1.2; MEAN CORPUSCULAR HEMOGLOBIN 27.5 pg (27.0-33.4); MEAN CORPUSCULAR HGB CONC 32.4 g/dL (32.0-36.0); MEAN CORPUSCULAR VOLUME 85 fl (80-97); RED BLOOD COUNT 4.49 10^6/uL (4.35-5.55); RED CELL DISTRIBUTION WIDTH 17.3 % (11.5-14.0)
[2016-04-01 05:12] LABS: ANION GAP 11 (5-19); BLOOD UREA NITROGEN 11 mg/dL (7-20); CALCIUM 8.8 mg/dL (8.4-10.2); CARBON DIOXIDE 33 mmol/L (22-30); CHLORIDE 94 mmol/L (98-107); CREATININE RESULT 0.69 mg/dL (0.52-1.25); GLUCOSE 83 mg/dL (75-110); POTASSIUM 3.4 mmol/L (3.6-5.0); SODIUM 137.9 mmol/L (137-145)
[2016-04-01] MEDS: GABAPENTIN 300 MG CAPSULE PO SCH ×3 (05:14→22:07)
[2016-04-01] MEDS: LANSOPRAZOLE 30 MG TAB.RAP.DR PO SCH (05:14)
[2016-04-01] MEDS ORDERED: (PENDING PHARMACY ID) (Divalproex Sodium [Depakote] 500 MG) PO SCH (08:00)
[2016-04-01] MEDS ORDERED: POTASSIUM CHLORIDE 10 MEQ TABLET.SA PO ONE (08:20)
[2016-04-01] MEDS: DIVALPROEX SODIUM 250 MG TABLET.DR PO SCH ×2 (08:35→22:07)
[2016-04-01] MEDS: ENOXAPARIN SODIUM INJ 40 MG/0.4 ML DISP.SYRIN SUBCUT SCH (08:35)
[2016-04-01] MEDS: LACTOBACILLUS ACIDOPHILUS 250 MG TAB PO SCH ×2 (09:19→17:10)
[2016-04-01] MEDS: POLYETHYLENE GLYCOL 3350 POWDER 17 GM/1 PACKET PO SCH (09:19)
--- NOTE | 2016-04-01 09:19 | PDOC PROGRESS REPORT ---
Subjective Progress Note for:: 04/01/16 Subjective:: Patient back on [place] O2 5 L. Reportedly desaturated again last night and placed on BIPAP for sleep. However no reported respiratory distress or temperature spikes. No reported choking sensation. Patient denies any worsening shortness of breath however. Denies any chest pain. No paroxysmal coughing. Had a very good bowel movement yesterday. His narcotics has been modified. After abdominal distention improved and narcotics modified he was able to be weaned off high flow oxygen. [facility]. Physical Exam Vital Signs: Temp Pulse Resp BP Pulse Ox 98.0 F 89 16 133/89 H 91 L 04/01/16 07:36 04/01/16 07:48 04/01/16 07:48 04/01/16 07:36 04/01/16 07:48 Pulse Oximeter Continuous Start: 03/26/16 09: 41 Freq: RTQ4 Status: Active Document 04/01/16 07:48 LBR (Rec: 04/01/16 07:55 LBR [email or web address]) Pulse Oximetry Assessment Oxygen Saturation (92-100) 91 Oxygen Flow Rate (L/min) 5 Oxygen Delivery Method Nasal Cannula Fraction of Inspired Oxygen (FIO2) 40 Equipment Usage Equipment in Use Continuous SpO2 Machine # N-[id number] Intake & Output 03/31/16 04/01/16 04/02/16 06:59 06:59 06:59 Intake Total 970 1750 Output Total 4250 2050 Balance -3280 -300 Weight 129.8 kg 129.8 kg General appearance: PRESENT: no acute distress, cooperative, obese Head exam: PRESENT: normocephalic Eye exam: PRESENT: EOMI Mouth exam: PRESENT: moist, neck supple Neck exam: ABSENT: JVD Respiratory exam: PRESENT: rhonchi - Minimal, unlabored. ABSENT: wheezes Cardiovascular exam: PRESENT: RRR. ABSENT: gallop GI/Abdominal exam: PRESENT: hypoactive bowel sounds, soft. ABSENT: tenderness Extremities exam: PRESENT: +1 edema Neurological exam: PRESENT: alert, awake, oriented to situation Skin exam: PRESENT: dry, warm. ABSENT: cyanosis Results Laboratory Results: 04/01/16 04:06 04/01/16 04:06 03/31/16 04/01/16 04/01/16 10:15 04:06 04:06 WBC 8.0 RBC 4.49 Hgb 12.3 L Hct 38.1 MCV 85 MCH 27.5 MCHC 32.4 RDW 17.3 H Plt Count 242 Carbonic Acid 1.60 H HCO3/H2CO3 Ratio 21:1 ABG pH 7.42 ABG pCO2 53.0 H ABG pO2 99.4 ABG HCO3 33.6 H ABG O2 Saturation 97.5 ABG Base Excess 7.6 FiO2 95% Sodium 137.9 Potassium 3.4 L Chloride 94 L Carbon Dioxide 33 H Anion Gap 11 BUN 11 Creatinine 0.69 Est GFR ( Amer) > 60 Est GFR (Non-Af Amer) > 60 Glucose 83 Calcium 8.8 03/29/16 22:00 Sputum Gram Stain - Final 03/29/16 22:00 Sputum Sputum Culture - Final 03/27/16 06:53 CK-MB (CK-2) 2.10 Impressions: Chest X-Ray 03/30/16 00:00 IMPRESSION: 2 cm nodule versus infiltrate in the left mid lung. Pulmonary vascular prominence. KUB X-Ray 03/31/16 12:51 IMPRESSION: Large bowel ileus. Assessment & Plan - Diagnosis (1) Respiratory failure Qualifiers: Chronicity: acute Respiratory failure complication: hypoxia and hypercapnia Qualified Code(s): J96.01 - Acute respiratory failure with hypoxia Is this a current diagnosis for this admission?: Yes (2) Aspiration pneumonia Qualifiers: Aspiration pneumonia type: due to gastric secretions Laterality: bilateral Lung location: unspecified part of lung Qualified Code(s): J69.0 - Pneumonitis due to inhalation of food and vomit Is this a current diagnosis for this admission?: Yes (3) UTI (urinary tract infection) Qualifiers: Urinary tract infection type: acute cystitis Hematuria presence: without hematuria Qualified Code(s): N30.00 - Acute cystitis without hematuria Is this a current diagnosis for this admission?: Yes (4) Seizure Is this a current diagnosis for this admission?: Yes (6) COPD (chronic obstructive pulmonary disease) Qualifiers: COPD type: unspecified COPD Qualified Code(s): J44.9 - Chronic obstructive pulmonary disease, unspecified Is this a current diagnosis for this admission?: Yes (7) Hypertension Qualifiers: Hypertension type: essential hypertension Qualified Code(s): I10 - Essential (primary) hypertension Is this a current diagnosis for this admission?: Yes (8) Hyperlipidemia Qualifiers: Hyperlipidemia type: unspecified Qualified Code(s): E78.5 - Hyperlipidemia, unspecified Is this a current diagnosis for this admission?: Yes (9) Neurogenic bladder Is this a current diagnosis for this admission?: Yes (10) Depression Qualifiers: Depression Type: unspecified Qualified Code(s): F32.9 - Major depressive disorder, single episode, unspecified Is this a current diagnosis for this admission?: Yes (11) History of stroke Is this a current diagnosis for this admission?: Yes (12) Chronic pain Qualifiers: Chronic pain type: chronic pain syndrome Qualified Code(s): G89.4 - Chronic pain syndrome Is this a current diagnosis for this admission?: Yes (13) Decubitus ulcer of coccyx, stage 2 Is this a current diagnosis for this admission?: Yes - Time Time Spent with patient: 25-34 minutes - Plan Summary Plan Summary: Continue current antibiotics. Continue to wean oxygen. We will check CT angiogram of the chest to rule out pulmonary embolism. Continue supportive care. Avoid sedatives. If CTA of the chest is negative for PE, may be able to [facility] to the [facility] tomorrow on home oxygen.
[2016-04-01] MEDS: LEVETIRACETAM 500 MG TABLET PO SCH ×2 (09:20→22:07)
[2016-04-01] MEDS: LACTULOSE SYRUP 20 GM/30 ML UDCUP PO SCH (22:10)
[2016-04-02] MEDS: IPRATROPIUM/ALBUTEROL 0.5-2.5 MG/3 ML AMPUL NEB SCH ×4 (02:22→19:21)
[2016-04-02] MEDS: PIPERACILLIN SODIUM/TAZOBACTAM 3.375 GM in NORMAL SALINE 100 ML IV SCH ×3 (03:36→14:54)
[2016-04-02] MEDS: GABAPENTIN 300 MG CAPSULE PO SCH ×2 (05:33→14:53)
[2016-04-02] MEDS: LANSOPRAZOLE 30 MG TAB.RAP.DR PO SCH (05:33)
[2016-04-02 05:44] LABS: ANION GAP 12 (5-19); BLOOD UREA NITROGEN 8 mg/dL (7-20); CALCIUM 9.2 mg/dL (8.4-10.2); CARBON DIOXIDE 28 mmol/L (22-30); CHLORIDE 101 mmol/L (98-107); GLUCOSE 103 mg/dL (75-110); POTASSIUM 3.6 mmol/L (3.6-5.0); SODIUM 141.3 mmol/L (137-145)
[2016-04-02] MEDS: OXYCODONE HCL IR 5 MG TABLET PO PRN (07:39)
[2016-04-02] MEDS: DIVALPROEX SODIUM 250 MG TABLET.DR PO SCH (07:40)
[2016-04-02] MEDS: ENOXAPARIN SODIUM INJ 40 MG/0.4 ML DISP.SYRIN SUBCUT SCH (08:25)
[2016-04-02] MEDS: POLYETHYLENE GLYCOL 3350 POWDER 17 GM/1 PACKET PO SCH (10:36)
[2016-04-02] MEDS: LEVETIRACETAM 500 MG TABLET PO SCH (10:40)
[2016-04-02] MEDS: LACTOBACILLUS ACIDOPHILUS 250 MG TAB PO SCH ×2 (10:40→17:51)
--- NOTE | 2016-04-02 11:12 | PDOC DISCHARGE SUMMARY ---
General - Admit/Disc Date/PCP Admission Date/Primary Care Provider: 03/26/16 09:41 TIFFANY THOMAS MD Discharge Date: 04/02/16 - Discharge Diagnosis (1) Aspiration pneumonia Is this a current diagnosis for this admission?: YesSummary: Treated initially with Zosyn. Will complete a course of Augmentin as an outpatient. All sputum and blood cultures have been negative. (2) Sleep apnea in adult Is this a current diagnosis for this admission?: YesSummary: Patient has not had a formal sleep study however when he sleeps he becomes hypoxic and apneic. This is exaggerated by his chronic narcotic use also. His morphine was decreased to oxycodone for pain. This has responded to BiPAP here in the hospital and we will send him out on CPAP pressure of 12. (3) Chronic pain Is this a current diagnosis for this admission?: YesSummary: Because of his apneic spells and hypoxia, his morphine was stopped and he was switched to oxycodone. (4) COPD (chronic obstructive pulmonary disease) Is this a current diagnosis for this admission?: Yes (5) Decubitus ulcer of coccyx, stage 2 Is this a current diagnosis for this admission?: Yes (6) Depression Is this a current diagnosis for this admission?: Yes (7) Hyperlipidemia Is this a current diagnosis for this admission?: Yes (8) Hypertension Is this a current diagnosis for this admission?: Yes (10) UTI (urinary tract infection) Is this a current diagnosis for this admission?: YesSummary: Urine culture has grown out Citrobacter - Additional Information Resuscitation Status: Full Code Discharge Diet: Cardiac Discharge Activity: Activity As Tolerated Home Medications: Acetaminophen [Tylenol Extra Strength 500 mg Tablet] 1,000 mg PO Q8HP PRN Albuterol Sulfate [Proair HFA] 2 puff IH Q4HP PRN 03/31/16 Bisacodyl [Dulcolax 10 mg Supp.rect] 10 mg VA DAILYP PRN 03/31/16 Bupropion HCl [Wellbutrin Sr 150 mg Tablet] 150 mg PO Q12 03/31/16 Divalproex Sodium [Depakote] 1,000 mg PO QHS 03/31/16 Divalproex Sodium [Depakote] 500 mg PO QAM 03/31/16 Duloxetine HCl [Cymbalta 20 mg Capsule.dr] 20 mg PO DAILY 03/31/16 Ezetimibe [Zetia 10 mg Tablet] 10 mg PO QHS 03/31/16 Folic Acid [Folvite 1 mg Tablet] 1 mg PO DAILY 03/31/16 Gabapentin [Neurontin 300 mg Capsule] 900 mg PO Q8H 03/31/16 Guaifenesin [Robitussin Syrup 200 mg/10 ml Ud Cup] 200 mg PO Q4HP PRN 03/31/16 Lactulose [Enulose 10 gm/15 mL Oral Solution] 10 gm PO QHS 03/31/16 Multivitamin [Multivitamins] 1 each PO DAILY 03/31/16 Nitroglycerin [Nitrostat] 0.4 mg SL Q5MP PRN 03/31/16 [place]-3/Dha/Epa/Fish Oil [Fish Oil 1,000 mg Softgel] 1,000 mg PO BID 03/31/16 Omeprazole 40 mg PO QAM 03/31/16 Polyethylene Glycol 3350 [Miralax Powder 17 gm/Packet] 17 gm PO Q12 03/31/16 Rosuvastatin Calcium [Crestor] 40 mg PO DAILY 03/31/16 Sennosides/Docusate 8.6-50 mg [Senna Plus Tablet] 2 each PO TID 03/31/16 Simethicone [Gas-X] 160 mg PO Q6HP PRN 03/31/16 Sodium Chloride [Saline Nasal Ladd] 1 spray NASL Q1HP PRN 03/31/16 Tamsulosin HCl [Flomax 0.4 mg Cap.sr] 0.4 mg PO DAILY 03/31/16 Amox Tr/Potassium Clavulanate [Augmentin 875-125 mg Tablet] 1 tab PO BID #20 tablet 04/02/16 Ipratropium/Albuterol Sulfate [Duoneb 3 ml Ampul] 3 ml NEB RTQ6 vial.neb Levetiracetam [Keppra 500 mg Tablet] 500 mg PO Q12 tablet 04/02/16 Oxycodone HCl [Oxy-Ir 5 mg Tablet] 10 mg PO Q4HP PRN #20 tablet 04/02/16 History of Present Illness History of Present Illness: MARION HAMILTON is a 65 year old male with a history 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 Patient was sent to the hospital with shortness of breath. The patient was found to be hypoxic in the 80s and was put on a nonrebreather mask. The patient did not have any seizure episodes. The patient was confused in the emergency room and unable to provide any information. Patient had a chest x-ray which showed infiltrate in the lung bilaterally. The patient had been taking narcotics for his chronic pain. Hospital Course Hospital Course: 65-year-old quadriplegic who presented with hypoxia. Patient was found to have a pneumonia most likely from aspiration. The patient had been on morphine for pain which may have contributed to this. The patient's morphine was stopped and he was switched over to oxycodone for pain control. The patient while hospitalized was treated with antibiotics and has had improvement. He was treated with Zosyn and is being sent out on a course of Augmentin. While here he did have apneic spells at night when he slept and he would become hypoxic with this. When placed on BiPAP pressure of 12/6 he had complete resolution of his hypoxia and he appears to have sleep apnea most likely obstructive sleep apnea. He has not had a formal sleep study however we will send him out on a CPAP pressure of 12 to use anytime he sleeps. The patient's narcotic use is probably making all of the above worse and he was switched from morphine to oxycodone. The patient is to be sent back to [facility] where he resides. Physical Exam Vital Signs: Temp Pulse Resp BP Pulse Ox 97.7 F 94 16 144/111 H 94 04/02/16 03:53 04/02/16 08:42 04/02/16 08:42 04/02/16 03:53 04/02/16 08:42 Pulse Oximeter Continuous Start: 03/26/16 09: 41 Freq: RTQ4 Status: Active Document 04/02/16 08:42 LBR (Rec: 04/02/16 09:08 [email or web address] [email or web address]) Pulse Oximetry Assessment Oxygen Saturation (92-100) 94 Oxygen Flow Rate (L/min) 2 Oxygen Delivery Method Nasal Cannula Fraction of Inspired Oxygen (FIO2) 28 Equipment Usage Equipment in Use Continuous SpO2 Machine # 2 Intake & Output 04/01/16 04/02/16 04/03/16 06:59 06:59 06:59 Intake Total 1750 2146 Output Total 2049 3250 Balance -300 -1104 Weight 129.8 kg 131.3 kg General appearance: PRESENT: no acute distress Eye exam: PRESENT: conjunctiva pink. ABSENT: scleral icterus Ear exam: PRESENT: normal external ear exam Mouth exam: PRESENT: moist, tongue midline Neck exam: ABSENT: JVD Respiratory exam: PRESENT: clear to auscultation aleisha. ABSENT: rales, rhonchi, wheezes Cardiovascular exam: PRESENT: RRR. ABSENT: diastolic murmur, rubs, systolic murmur GI/Abdominal exam: PRESENT: normal bowel sounds, soft. ABSENT: distended, guarding, mass, organolmegaly, rebound, tenderness Extremities exam: ABSENT: calf tenderness, clubbing, pedal edema Neurological exam: PRESENT: alert, awake, oriented to person, oriented to place , oriented to time Psychiatric exam: PRESENT: appropriate affect Skin exam: PRESENT: other - Dressing in place on the sacrum. Results Laboratory Results: 04/01/16 04:06 04/02/16 04:40 04/02/16 04:40 Sodium 141.3 Potassium 3.6 Chloride 101 Carbon Dioxide 28 Anion Gap 12 BUN 8 Creatinine 0.60 Est GFR ( Amer) > 60 Est GFR (Non-Af Amer) > 60 Glucose 103 Calcium 9.2 03/29/16 22:00 Sputum Gram Stain - Final 03/29/16 22:00 Sputum Sputum Culture - Final REDUCED NORMAL CHUCKIE 03/27/16 06:53 CK-MB (CK-2) 2.10 Impressions: Chest X-Ray 03/30/16 00:00 IMPRESSION: 2 cm nodule versus infiltrate in the left mid lung. Pulmonary vascular prominence. KUB X-Ray 03/31/16 12:51 IMPRESSION: Large bowel ileus. Chest/Abdomen CTA 04/01/16 00:00 IMPRESSION: No CT angio evidence of acute pulmonary emboli or thoracic aortic dissection Bibasilar airspace disease atelectasis versus pneumonia. Minimal patchy left upper lobe airspace disease, edema versus pneumonia. Incidental finding of a 1.6 cm splenic artery aneurysm. Yearly follow up to exclude growth or change is recommended with CT abdomen pelvis Qualifiers PATEINT BEING DISCHARGED WITH ANY OF THE FOLLOWING DIAGNOSIS?: No Plan Discharge Plan: Patient is discharged back to [facility]. He is to use CPAP with a pressure of 12. Time Spent: Greater than 30 Minutes
[2016-04-02 20:00] VITALS: BP 149/84
== END 2016-04-02 19:55 | DRG 177 ==
LOC: ER 06:27 → EH 08:41 → UNDOADMIN 08:41 → EH 09:41 → 3N 03-27 01:20
PROC: 5A09457 Assistance with Respiratory Ventilation, 24-96 Consecutive Hours, Continuous Positive Airway Pressure (ICD-10-PCS; principal; 2016-03-26)
PROC: 3E0F73Z Introduction of Anti-inflammatory into Respiratory Tract, Via Natural or Artificial Opening (ICD-10-PCS; 2016-03-26)
DX: J69.0 Pneumonitis due to inhalation of food and vomit (principal); J96.01 Acute respiratory failure with hypoxia; G82.50 Quadriplegia, unspecified; J96.02 Acute respiratory failure with hypercapnia; N30.00 Acute cystitis without hematuria; K56.7 Ileus, unspecified; G47.33 Obstructive sleep apnea (adult) (pediatric); J44.9 Chronic obstructive pulmonary disease, unspecified; L89.152 Pressure ulcer of sacral region, stage 2; F32.9 Major depressive disorder, single episode, unspecified; E78.5 Hyperlipidemia, unspecified; I10 Essential (primary) hypertension; M19.90 Unspecified osteoarthritis, unspecified site; N31.9 Neuromuscular dysfunction of bladder, unspecified; G89.4 Chronic pain syndrome; R56.9 Unspecified convulsions; R91.1 Solitary pulmonary nodule; Z79.899 Other long term (current) drug therapy; Z85.828 Personal history of other malignant neoplasm of skin; Z87.891 Personal history of nicotine dependence; Z82.3 Family history of stroke; Z91.018 Allergy to other foods
CPT/HCPCS: 36415; 36600; 71010; 71275; 74000; 80048; 80053; 81001; 82272; 82550; 82553; 82803; 83735; 83880; 84484; 85025; 85027; 87040; 87070; 87086; 87088; 87186; 87205; 87493; 89055; 93005; 93010; 94640; 94660; 94762; J0295; J0692; J1650; J1940; J1953; J1956; J2543; J3370; J3480; J3490; J7030; J7620

== ENCOUNTER → 2016-05-16 | Outpatient (CLI) | payer MEDICARE, MEDICAID ==
--- NOTE | 2016-05-16 09:14 | ST Modified Barium Swallow ---
Recommendation - Recommendations Recommendations: 1) DIET: recommend continued [facility] soft ground meats and thin liquids. 2) STRATEGIES: alternate bites and sips, small bites and sips, 1 pill at a time in puree. 3) Recommend speech therapy for dysphagia at SNF, pt currenly resident at [facility]. SUMMARY: Pt presents with a mild- moderate oropharyngeal and pharyngeal dysphagia characterized by weak base of tongue, premature spillage, reduced hyolaryngeal excursion, flash penetration, and deep penetration. No aspiration observed during the study. Mild residuals of puree and soft solids observed at the level of the valleculae, observed to partially clear with liquid assisstance. Pt indicated no sticking sensation with radiographic findings of residuals in valleculae. Medical Diagnoses - Medical Diagnoses Medical Diagnosis Description & ICD-10 Code(s): unspec foreign body in resp tract T17.908A, centrilobular emphy Other Medical Diagnoses/Co-Morbidities: seizures, broken neck in Jan 2013, history of reflux - ICD-10 Tx Diagnosis Coding (1) Dysphagia, oropharyngeal phase ICD-10 Code(s): R13.12 - DYSPHAGIA, OROPHARYNGEAL PHASE (2) Dysphagia, pharyngeal phase ICD-10 Code(s): R13.13 - DYSPHAGIA, PHARYNGEAL PHASE ST Modified Barium Swallow - General Date: 05/16/16 Referring Physician: Dr Guerra Risks/Precautions: Falls - pt arrived by EMS transport Date of Onset: 04/18/16 Reason for Referral: unspec foreign object in resp tract - History History obtained from: Patient -: Medical - Pt reports no coughing or choking while eating, however reports cause for study is due to choking event x1 which happened approximately 3-4 weeks ago. Pt states he was eating solid food when the food "went down the wrong way and then had a seizure". Pt states while he was in hospital he was told he had a double PNA. Pt denies any other history of swallowing difficulties. Pt also denies globus sensation. Pt reports history of reflux "years ago but went away" pt reports does not take reflux meds. PMHx: seizures, brief coarse of speech therapy at [place] after choking event-per pt, broken neck in Jan 2013, history of reflux. Medications: pt unable to recall current medications- pt states "i have a lot." Pt only able to recall ""seizure meds." Allergies: nuts - Functional Status Prior Functional Status: INDEPENDENT: feeding Current Functional Limitations: feeding - Subjective Patient/caregiver goal(s): r/o aspiration Cognitive-Linguistic Function: WNL Speech Intelligibility: WNL Current Nutritional Means: PO Current PO diet: Mechanical- ground Current symptoms: other - "aspiration event" Pain: 03/07 - left heel pain - Objective Assessment: Upright, Left Lateral - Food Trials Used Food trials used: Thin liquids, Pureed, Soft solids The patient: Was Able to Self Feed - Oral-Motor Skills Dentition: Dentures-Upper, Dentures-Lower, Edentulous Velo-pharyngeal function: Unremarkable Laryngeal Function: Volitional Cough, Volitional Swallow - Assessment Oral prep: Normal Labial closure: Adequate Leakage: None Mastication: Adequate Lingual Movement: Normal Oral stage: Normal for this Procedure - Pharyngeal Stage Initiation of Pharyngeal Stage Reflex: Delayed Reflex Delay Time (Seconds): 1 Decreased laryngeal elevation: Yes - mild Reduced Velopharyngeal Closure: no Reduced pressure generation: No reduced tongue-based retraction: Yes - mild-moderate Pre-swallow pooling in valleculae: Mild Pre-Swallow pooling in pyriforms: Mild Reduced Thyro-Hyoid approximation: Yes - mild Reduced epiglottic excursion: No Reduced pharyngeal peristalsis/contraction: No Post-swallow residulas vallecular: Mild - on puree and soft solids Post-Swallow residuals in pyriforms: None Reduced Cricopharyngeal opening: No - Fall Risk Assessment Medications/Conditions that increase fall risks include: Antidepressants, sedatives, anti-arrhythmic, diuretic, benzodiazipenes, neuroleptics. BP regulation problems, cardiac problems, balance or gait deficits, neurological problems. Is patient considered at risk for falls: yes Fall Risk Actions Taken: Pt physician notified - Behavioral Observations During evaluation process patient: was pleasant, was cooperative, able to answer questions, provided medical history - Treatment / Educational Needs: Treatment/Education Needs: Treatment consisted of patient education on the role of the Speech Pathologist. Patient's plan of care and golas were communicated as well as scheduling and attendance policies. Recommendations for initial home program were shared. Patient demonstrated understanding and verbalized agreement. Initial home program recommendations: Pt provided with verbal and written education on recommendations from study and aspiration PNA. Pt verbalized understanding of strategies. - Impression/Summary Laryngeal Penetration: Yes, Flash, Deep, Silent, during swallow Consistency: Thin Tracheal Aspiration: no Ineffective compensatory strategies: hard swallow Patient presents with: Pharyngeal stage dysph., Oral-Pharyngeal dysph. Risk of Aspiration: Mild - Recommendations NPO: no Solid diet recommendations: Mechanical Soft, Ground Meat Liquid Diet Modification: Thin Strict aspiration precautions: Yes Pt/Family education and followup with MD: Yes Dysphagia therapy with [facility]: yes, dysphagia therapy - pt resident at [facility] Recommended techniques: Fully Upright During Meal, Small Bites and Sips, Alternate Bites/Sips Information, Precautions and Recommendations: Patient (Written), Patient (Verbal ) - Time Total Time: 25 - Plan of Care Strategies to optimize patient understanding include:: ongoing assessment of educational needs, implementation of educational strategies, and re-education. - - -: Thank you for the opportunity to work with this patient and his/her family. Should you have any questions about this patient's plan or progress, I can be reached at [phone]. Charge G Code? - - -: Yes ST F.L. Impairment Category - Rationale Based On Rationale Based On: Clin Find., Obj Measures - Swallowing Current G8996: CJ 20-39% Impaired Goal G8997: CJ 20-39% Impaired Discharge G8998: CJ 20-39% Impaired
== END ==
LOC: RAD 08:38
PROVIDERS: ATTEND Internal Medicine Pulmonary Disease
DX: T17.908A Unspecified foreign body in respiratory tract, part unspecified causing other injury, initial encounter (principal); J43.2 Centrilobular emphysema; R13.12 Dysphagia, oropharyngeal phase
CPT/HCPCS: 74230; 92611; G8996; G8997; G8998

== ENCOUNTER → 2018-08-31 | Outpatient (CLI) | payer MEDICARE, MEDICAID ==
--- NOTE | 2018-08-31 11:20 | RADIOLOGY REPORT (SQ) ---
EXAM DESCRIPTION: FOOT RIGHT COMPLETE COMPLETED DATE/TIME: 08/31/2018 9:36 am REASON FOR STUDY: OSTEOMYELITIS (M86.9) M86.9 OSTEOMYELITIS, UNSPECIFIED COMPARISON: None. NUMBER OF VIEWS: Three views. TECHNIQUE: AP, lateral and oblique radiographic images acquired of the right foot. LIMITATIONS: None. FINDINGS: MINERALIZATION: Osteopenia. BONES: There appears to be some bone destruction in the 1st distal phalanx. JOINTS: No effusions. SOFT TISSUES: No soft tissue swelling. No foreign body. OTHER: No other significant finding. IMPRESSION: Osteopenia. Cannot exclude osteomyelitis in the 1st distal phalanx. TECHNICAL DOCUMENTATION: JOB ID: [id number] [employer]- All Rights Reserved Reading location - IP/workstation name: [email or web address]
== END ==
LOC: RAD 09:11
PROVIDERS: ATTEND Internal Medicine
DX: M86.8X7 Other osteomyelitis, ankle and foot (principal)